=== PATIENT | male | born 1960 | race Caucasian/White ===

== ENCOUNTER → 2017-03-31 | Outpatient (CLI) | payer OTHER | LOC: GMAM 10:28 | PROVIDERS: ATTEND Family Medicine | DX: R97.20 Elevated prostate specific antigen [PSA] (principal); E55.9 Vitamin D deficiency, unspecified ==

== ENCOUNTER → 2017-08-06 | Outpatient (CLI) | payer OTHER | LOC: GMAM 15:02 | PROVIDERS: ATTEND Family Medicine | DX: R97.20 Elevated prostate specific antigen [PSA] (principal) ==

== ENCOUNTER → 2017-12-09 | Outpatient (CLI) | payer OTHER ==
--- NOTE | 2017-12-09 10:22 | US ---
LIMITED ABDOMINAL ULTRASOUND HISTORY:MALIGNANT NEOPLASM OF ASCENDING COLON COMPARISON: Ultrasound of October 27, 2015 TECHNIQUE: Grayscale and color Doppler sonographic evaluations of abdominal visceral organs FINDINGS: Suboptimal image quality. Liver demonstrates diffusely increased echotexture. Several scattered areas of subtle hypoattenuation in liver could represent focal fatty sparing, given lack of clear appearance of mass lesion and without associated vascularity. No abnormal intrahepatic biliary distention. Major portal veins are patent with unremarkable directions of flow. No perihepatic ascites. Gallbladder is unremarkable in appearance with normal wall thickness. No shadowing stones nor pericholecystic fluid is identified. No sonographic Estrada's sign. Common bile duct measures 5.5 mm in diameter. Pancreas is suboptimally visualized. Visualized portions of right kidney demonstrate no shadowing stone, hydronephrosis nor cortical lesion. IMPRESSION: 1. Suboptimal study. Extensive increase in hepatic echotexture consistent with parenchymal disease versus underlying fatty infiltration. Several areas of hypoechoic appearance in liver again identified, possibly reflective of focal fatty sparing. These findings are not convincing for mass lesion and without concerning vascularity. 2. No cholelithiasis nor sonographic suggestion of cholecystitis. 3. No abnormal intrahepatic and extrahepatic biliary distention. Electronically signed by: Burton Salgado MD 12/09/2017 10:21 AM ASSOCIATE PROFESSOR OF MATHEMATICS
== END ==
LOC: US 08:08
PROVIDERS: ATTEND Internal Medicine Hematology & Oncology
DX: C18.2 Malignant neoplasm of ascending colon (principal)

== ENCOUNTER → 2018-03-06 | Outpatient (CLI) | payer OTHER | LOC: GMAM 11:15 | PROVIDERS: ATTEND Family Medicine | DX: R97.20 Elevated prostate specific antigen [PSA] (principal); E55.9 Vitamin D deficiency, unspecified ==

== ENCOUNTER → 2018-03-20 | Outpatient (CLI) | payer OTHER | LOC: GMAM 11:23 | PROVIDERS: ATTEND Family Medicine | DX: C18.9 Malignant neoplasm of colon, unspecified (principal) ==

== ENCOUNTER 2018-06-11 13:22 | Observation (INO) | payer OTHER ==
--- NOTE | 2018-06-11 15:12 | HP ---
SUPERVISING PHYSICIAN: Asa Dominguez M.D. CHIEF COMPLAINT: Vomiting. HISTORY OF PRESENT ILLNESS: This is a 58 year-old male patient who presented to Dr. Mosley's office earlier today with nausea and vomiting. He stated that his symptoms started yesterday while he was watching TV. He continued to have some nausea and vomiting so went to the office this afternoon. He had some labs drawn which were pretty much unremarkable with a mild leukocytosis, however abdominal film indicated he might have an ileus versus small bowel obstruction in very early stages. The patient does have a history of colon cancer. His last dose of chemotherapy was in March and he is actually being evaluated in [facility] for a clinical trial of a new chemotherapy medication that is to be started on Friday, so he is currently not on any chemotherapy. His oncologist is Dr. Chavarria in [place]. At time of examination, the patient is alert and oriented without any distress. He does have a little bit of epigastric discomfort to palpation. PAST MEDICAL HISTORY: 1. Colon cancer. 2. Hyperlipidemia. 3. Vitamin D deficiency. 4. Testosterone deficiency. 5. Hypertriglyceridemia. PAST SURGICAL HISTORY: 1. Colon resection in 2016 which also took 20% of his liver. 2. Hemicolectomy. 3. Left arm fracture repair open reduction and internal fixation. CURRENT MEDICATIONS: 1. Vitamin D 1,000 units p.o. daily. ALLERGIES: NO KNOWN DRUG ALLERGIES. FAMILY HISTORY: Father had lung cancer. Mother who is healthy. Two healthy brothers. Maternal grandfather had colon cancer. SOCIAL HISTORY: The patient drinks alcohol socially. He used to use smokeless tobacco but quit in 2014. No illegal drugs. He is but he does have 2 children. REVIEW OF SYSTEMS: CONSTITUTIONAL: No fever or chills. No recent weight loss or weight gain. HEENT: No headaches, vision changes, ear pain, nasal congestion or throat pain. RESPIRATORY: No cough, hemoptysis or pleuritic chest pain. CARDIOVASCULAR: No chest pain, palpitations or peripheral edema. GASTROINTESTINAL: Positive for nausea and vomiting. No significant abdominal pain. No diarrhea or constipation. GENITOURINARY: No dysuria, frequency or flank pain. ENDOCRINE: No polydipsia, polyuria or polyphagia. No heat or cold intolerance. HEMATOLOGIC: No easy bruising or transfusion reaction. MUSCULOSKELETAL: No back pain, joint pain or joint swelling. NEUROLOGIC: No dizziness, paresthesias or seizures. PHYSICAL EXAMINATION: VITAL SIGNS: Blood pressure 116/79, heart rate 88, respiratory rate 16, temperature 98.8, oxygen saturation 98%. GENERAL: Mr. Carpenter is a 58 year-old male patient who is in no active distress currently. HEENT: Normocephalic and atraumatic. Eyes: Pupils are equal and reactive. Nose: No drainage. Throat: Moist mucosa. NECK: Supple. Midline trachea. No jugular venous distention. CHEST: Symmetrical with equal rise and fall of the chest with inspiration and expiration. Lung sounds are clear to auscultation bilaterally. CARDIOVASCULAR: Regular rate and rhythm. Normal S1 and S2. ABDOMEN: Soft. Positive bowel sounds. Some mild tenderness to palpation in the epigastric area. GENITOURINARY: Exam is deferred. EXTREMITIES: Lower extremities with no edema. NEUROLOGIC: The patient is alert and oriented. Moves all extremities. Extraocular movements are intact. LABORATORY: Labs are reviewed and show WBCs are 11.6, hemoglobin 17.0, hematocrit 49.3, platelet count 325. Chemistry is unremarkable. He had a minimally elevated lipase of 53. I do not have the abdominal film available for review, however reportedly from Dr. Mosley it may show an early ileus versus small bowel obstruction. ASSESSMENT: 1. Nausea with vomiting. 2. Dehydration. 3. Possible small bowel obstruction versus ileus. 4. Colon cancer. PLAN: Will admit the patient for IV fluids as well as control of nausea. Will start on a clear liquid diet and advance as tolerated. Additionally I have ordered some IV Protonix as he may have a degree of gastritis. Will recheck an abdominal film tomorrow to see if there is any improvement versus worsening of the small bowel obstruction versus ileus. Hopefully he will improve and can be discharged so that he can make his appointment on Friday for his clinical trial in [place]. #[id number] [facility]
[2018-06-11] MEDS ORDERED: ONDANSETRON INJ 4 MG/2 ML VIAL IV PRN (15:41)
[2018-06-11] MEDS ORDERED: SODIUM CHLORIDE 0.9% (FLUSH) 10 ML SYG IV PRN (15:41)
[2018-06-11] MEDS: LACTATED RINGERS 1,000 ML IVS PRN (15:52)
[2018-06-11] MEDS ORDERED: IV SET AND CAP CHANGE INJ INJ SCH (16:00)
[2018-06-11] MEDS: PANTOPRAZOLE SODIUM IV 40 MG VIAL IV SCH (16:31)
[2018-06-12] MEDS: LACTATED RINGERS 1,000 ML IVS PRN ×3 (01:25→21:11)
--- NOTE | 2018-06-12 06:21 | RAD ---
EXAM DESCRIPTION: Abdomen Flat Upright CLINICAL HISTORY: 58 years, Male, possible SBO COMPARISON: CT abdomen from July 14, 2015 FINDINGS: Dilated loops of bowel with air-fluid levels concerning for small bowel obstruction. No free air. Electronically signed by: Frankie Bustamante MD 06/12/2018 6:20 AM CDT
[2018-06-12] MEDS ORDERED: SODIUM PHOS/BIPHOS ENEMA ADULT 133 ML BTTL PR ONE (10:39)
--- NOTE | 2018-06-12 10:59 | CONS ---
DATE OF CONSULTATION: 06/12/18 REFERRING: Hospitalist service HISTORY OF PRESENT ILLNESS: The patient is a 58-year-old male who was admitted from Dr. Mosley's office yesterday with nausea and vomiting. He stated it began yesterday morning. 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 X-rays show question of an early small bowel obstruction. His last chemotherapy was in March. He is scheduled to go to [facility] on Friday for a [facility] scan to begin a new protocol on Friday. He states that he has not lost weight, gained weight and that his clothes are fitting. He denies changes in his bowel habits, melena or hematochezia. PAST MEDICAL HISTORY: 1. Hyperlipidemia. 2. Testosterone and vitamin D deficiency. 3. Hypertriglyceridemia. PAST SURGICAL HISTORY: 1. Colon resection. 2. Liver resection. 3. Left arm fracture with open reduction and internal fixation. CURRENT MEDICATIONS: Vitamin D. ALLERGIES: NO KNOWN DRUG ALLERGIES. FAMILY HISTORY: Positive for lung cancer, colon cancer. SOCIAL HISTORY: He drinks moderately. He quit using smokeless tobacco in 2014 at the time of this cancer. He is . REVIEW OF SYSTEMS: There are no fevers or chills, no upper respiratory symptoms. He denies abdominal pain, nausea or vomiting. He denies urinary symptoms. PHYSICAL EXAMINATION: GENERAL: The patient is awake, alert, cooperative, in no acute distress. VITAL SIGNS: The patient is currently afebrile, normotensive. Pulse in the 80s. HEENT: Sclerae nonicteric. Mucous membranes moist. NECK: Without adenopathy. BACK: Without CVA tenderness. CHEST: Equal breath sounds bilaterally. ABDOMEN: Soft, mildly distended and somewhat firm, but there is no tenderness, no discrete mass and no fluid wave. RECTAL: Deferred. EXTREMITIES: Without cyanosis, clubbing or edema. LABORATORY: Potassium 3.9, creatinine 0.68. Lipase elevated at 53 yesterday. It is pending today. White blood cell count is down to 6.1 from 11. Hemoglobin 14.5, platelet count 249,000, neutrophils 65%. X-ray reveals a few air-fluid levels in the small bowel and still has stool within his colon. There is a question of an area of the splenic flexure of the colon with a possible apple core lesion, but this is likely to be just motion. ASSESSMENT: 1. History of colon cancer with hepatic metastasis and known omental metastasis. 2. Probable carcinomatosis with partial versus early small bowel obstruction. RECOMMENDATION: Continue the iv fluids and clear liquids. Increase ambulation. We will give the patient a Fleet's enema. We will repeat x-rays in the morning and proceed from there. #[id number] [facility]
[2018-06-12] MEDS: PANTOPRAZOLE SODIUM IV 40 MG VIAL IV SCH (17:37)
--- NOTE | 2018-06-12 20:51 | PN ---
DATE: 06/12/18 SUPERVISING PHYSICIAN: Asa Dominguez M.D. SUBJECTIVE: The patient is sitting up in his bed. He has tolerated his clear liquids without any problems. We discussed the possibility of a small bowel obstruction and he agreed to present plan of care. He denies any nausea or vomiting or significant abdominal pain. OBJECTIVE: VITAL SIGNS: He is afebrile, heart rate 82, blood pressure 107/69, respiratory rate 16, O2 sat 99% on room air. RESPIRATORY: Essentially clear to auscultation bilaterally. CARDIAC: Regular rate and rhythm. GASTROINTESTINAL: Abdomen is soft, nondistended, non-tender. Bowel sounds are positive. EXTREMITIES: No cyanosis, clubbing or edema. NEUROLOGIC: He is awake,alert and oriented times three. LABORATORY: WBC 6.1, hemoglobin 14.5, hematocrit 43.5. Chemistries are basically within normal limits with his repeat lipase this morning of 22. Abdominal x-ray shows dilated loops of bowel with air/fluid levels concerning for small bowel obstruction with no free air. All other labs and films have been reviewed via the EMR. ASSESSMENT: 1. Abdominal pain with concerns for small bowel obstruction. 2. History of colon cancer with hepatic metastasis. 3. Dehydration that has mostly resolved. PLAN: We will continue present supportive care. I have consulted Dr. Vasques and will defer his abdominal issues to him. His lab was basically within normal limits this morning, so will hold on any lab tomorrow, but will do another abdominal x-ray. He will also get a Fleets enema. Otherwise will continue to monitor him closely and follow as needed. Dr. Dominguez is the collaborating physician available for consultation. #[id number] [facility]
--- NOTE | 2018-06-13 06:57 | RAD ---
EXAM DESCRIPTION: Abdomen Flat Upright CLINICAL HISTORY: 58 years, Male, sbo COMPARISON: June 12, 2018 FINDINGS: Gas-distended loops of bowel with air-fluid levels. Obstruction not excluded. Findings similar to prior study. No other change. Electronically signed by: Frankie Bustamante MD 06/13/2018 6:56 AM CDT
[2018-06-13 10:44] VITALS: BP 109/69; TEMP 98.5; O2SAT 99
--- NOTE | 2018-06-13 16:08 | DS ---
SUPERVISING PHYSICIAN: Asa Dominguez M.D. DISCHARGE DIAGNOSIS: 1. Abdominal pain with concerns for developing small bowel obstruction. 2. History of colon cancer with hepatic metastasis. 3. Dehydration that has resolved. HISTORY OF PRESENT ILLNESS: This is a 58 year-old male patient that presented to his primary care physician's office, Dr. Mosley, on the day of admission with nausea and vomiting. His symptoms started the prior day while he was watching TV. He went to see Dr. Mosley and some labs were drawn. They were fairly unremarkable. He did have mild leukocytosis. He received some fluids in the clinic, however his abdominal film indicated that he may have an ileus versus small bowel obstruction in the very early stages. The patient has a history of colon cancer. His last dose of chemotherapy was in March and he is actually being evaluated at [facility] for clinical trial this coming Friday. His oncologist is Dr. Chavarria in [place]. HOSPITAL COURSE: The patient was placed in Observation. He was initially made NPO and then his diet was advanced to clear liquid. Dr. Vasques was consulted and he agreed with the present plan of care to continue with bowel rest utilizing clear liquids only and to monitor him by his abdominal x-ray. He had no further complaints of nausea, vomiting or diarrhea. Abdomen was soft, nondistended, non-tender. He tolerated his p.o. fluids well, although his x- ray did continue to show a questionable small bowel obstruction. Clinically he improved. His vital signs were stable. His laboratory was unremarkable except for his initial lipase was elevated at 53, but normalized at 22. His morning x- ray for his abdomen shows gas-distended loops of bowel with air-fluid levels. Obstruction is not included. Because he is clinically stable and has tolerated his fluids without any problems, he will be discharged home in stable condition. DISCHARGE PLAN: The patient will be discharged home in stable condition today. He is to continue with a clear liquid diet per Dr. Vasques's recommendation and he may add Ensure. He is to have a CT done on Friday at [facility] to followup for his colon cancer. He is then to followup with his primary care physician, Dr. Mosley, on June 22. He will be discharged on no medications. He is to followup at the hospital or with Dr. Mosley's office for any further problems or complications. DISCHARGE MEDICATIONS: None. #[id number] [facility]
== END 2018-06-13 09:25 | disposition home or self-care (01) ==
LOC: GMAM 13:22 → MS 14:30 → INTOOBSV 14:30
PROVIDERS: ADMIT Nurse Practitioner; ATTEND Nurse Practitioner Acute Care
DX: E86.0 Dehydration (principal); C18.9 Malignant neoplasm of colon, unspecified; C78.7 Secondary malignant neoplasm of liver and intrahepatic bile duct; C78.6 Secondary malignant neoplasm of retroperitoneum and peritoneum; R10.13 Epigastric pain; D72.829 Elevated white blood cell count, unspecified; E78.5 Hyperlipidemia, unspecified; E78.1 Pure hyperglyceridemia; E55.9 Vitamin D deficiency, unspecified; Z92.21 Personal history of antineoplastic chemotherapy; Z79.899 Other long term (current) drug therapy; Z87.891 Personal history of nicotine dependence
CPT/HCPCS: J7120 ×4; 80048; 36415; 82150; 85025; 83690 ×2; 74019 ×2

== ENCOUNTER → 2018-06-25 | Outpatient (CLI) | payer OTHER | LOC: GMAM 10:56 | PROVIDERS: ATTEND Family Medicine | DX: E53.8 Deficiency of other specified B group vitamins (principal); R53.83 Other fatigue; E55.9 Vitamin D deficiency, unspecified ==

== ENCOUNTER 2018-06-28 18:34 | Inpatient (IN) | payer OTHER ==
[2018-06-28] MEDS ORDERED: HYDROcodone 5MG/APAP 325MG 1 EA TAB PO ONE (19:05)
--- NOTE | 2018-06-28 20:16 | RAD ---
EXAM DESCRIPTION: Abdomen Series CLINICAL HISTORY: upper abd pain, active colon cancer COMPARISON: Chest radiograph August 09, 2015 FINDINGS: Frontal view of the chest and supine and upright images of the abdomen were submitted. Cardiac silhouette is within normal limits. Linear calcification at the left apex compatible with calcified pleural plaque. This was visualized in the prior CT October 27, 2015. There is no focal parenchymal disease. There is an infusion catheter with the tip ending at the level of the superior vena cava. Surgical sutures are noted at the right mid abdomen. Air-fluid level at the right upper quadrant could be secondary to a diarrheal state. There is no free air in the abdomen. There is no evidence of bowel obstruction. IMPRESSION: Air-fluid level at the right upper quadrant could be secondary to a diarrheal state. Electronically signed by: Vinod Donald MD 06/28/2018 8:15 PM CDT
[2018-06-28] MEDS ORDERED: MORPHINE SULFATE INJ 10 MG/ML VIAL IV ONE ×2 (20:21→22:19)
--- NOTE | 2018-06-28 21:45 | CT ---
EXAM DESCRIPTION: Abdomen/Pelvis w/Contrast CLINICAL HISTORY: upper abd pain, known colon cancer with carcinomat COMPARISON: July 14, 2015 TECHNIQUE: Contiguous axial images of the abdomen and pelvis were obtained after the administration of intravenous contrast followed by reconstruction images.This exam was performed according to our departmental dose-optimization program, which includes automated exposure control, adjustment of the mA and/or kV according to patient size and/or use of iterative reconstruction technique. FINDINGS: Linear opacities within the lungs may represent scar versus subsegmental atelectasis. Patient is status post partial colon resection. Air-fluid levels within the colon compatible with a diarrheal state. Proximal colonic loops are distended with fluid. Mildly dilated small bowel loops in the midabdomen worrisome for at least a partial small bowel obstruction. Abnormal attenuation within the omentum compatible with known carcinomatosis. There is a 8 millimeter area of decreased echotexture within the right hepatic parenchyma of unknown etiology. There is atherosclerosis. Aorta demonstrates normal caliber and tapering. The spleen, and pancreas are within normal limits. Calcifications within the pelvis noted. IMPRESSION: Dilated mid small bowel loops worrisome for a partial small bowel obstruction . Distended proximal colonic loops with fluid with caliber transition at the level of the sigmoid colon also compatible with at least a partial small bowel obstruction. Abnormal attenuation within the omentum compatible with known carcinomatosis. Electronically signed by: Vinod Donald MD 06/28/2018 9:44 PM CDT
[2018-06-28] MEDS ORDERED: KCL 10 MEQ/D5 1/2NS 1,000 ML IVS ONE (22:03)
[2018-06-28] MEDS ORDERED: TEMAZEPAM 15 MG CAP PO ONE (22:03)
--- NOTE | 2018-06-28 22:07 | ED.PDOC ---
History of Present Illness - General Chief Complaint: Abdominal Pain Stated Complaint: abd pain, colon ca Time Seen by Provider: 06/28/18 18:35 Source: patient Exam Limitations: no limitations - History of Present Illness Initial Comments: the patient is a 58-year-old male presenting to the emergency room secondary to a feeling of upper abdominal fullness and discomfort as well as hardness. The patient has known metastatic colon cancer with carcinomatosis. He is followed at [facility] and is receiving an experimental chemotherapy. He did have a partial small bowel obstruction here approximately 3 weeks ago that remitted essentially on its own with bowel rest and IV fluids. No fevers. No nausea or vomiting. He has had decreased oral intake. He has had increasing pain over the last 3 days. He has had some constipation but has had some stool output. Timing/Duration: other - 3 days Severity: moderate Improving Factors: nothing Worsening Factors: nothing Associated Symptoms: loss of appetite Allergies/Adverse Reactions: Allergies NO KNOWN ALLERGY Allergy (Verified 06/11/18 17:08) Home Medications: Ambulatory Orders Metoclopramide HCl [Reglan] 10 mg PO Q6HR PRN 06/28/18 Review of Systems - Review of Systems Constitutional: States: malaise EENTM: States: no symptoms reported Respiratory: States: no symptoms reported Cardiology: States: no symptoms reported Gastrointestinal/Abdominal: States: abdominal pain, constipation. Denies: diarrhea, vomiting Genitourinary: States: no symptoms reported Musculoskeletal: States: no symptoms reported Skin: States: no symptoms reported Neurological: States: no symptoms reported Endocrine: States: no symptoms reported All other Systems: No Change from Baseline Past Medical History (General) - Patient Medical History Hx Seizures: No Hx Stroke: No Hx Asthma: No Hx of COPD: No Hx Cardiac Disorders: No Hx Congestive Heart Failure: No Hx Pacemaker: No Hx Hypertension: No Hx Thyroid Disease: No Hx Diabetes: No Hx Gastroesophageal Reflux: No Hx Cancer: Yes - colon Hx MRSA: No Surgical History: cancer surgery - Vaccination History Hx Tetanus, Diphtheria Vaccination: No Hx Influenza Vaccination: No Hx Pneumococcal Vaccination: No - Social History Hx Tobacco Use: Yes - snuff Hx Chewing Tobacco Use: Yes Tins Per Day Chewed: 1 Hx Alcohol Use: No Hx Substance Use: No Hx Physical Abuse: No Hx Emotional Abuse: No - Female History Patient is a Female of Child Bearing Age (10 -59 yrs old): No Family Medical History - Family History Mother Family History: Unknown Living Status: Still Living Physical Exam - Physical Exam General Appearance: Alert, Other - uncomfortable Eye Exam: bilateral normal Ears, Nose, Throat: hearing grossly normal, normal ENT inspection, normal pharynx Neck: full range of motion, supple Respiratory: lungs clear, normal breath sounds, no respiratory distress, no accessory muscle use Cardiovascular/Chest: normal peripheral pulses, regular rate, rhythm, no edema Peripheral Pulses: radial,right: 2+, radial,left: 2+, dorsalis pedis,right: 2+, dorsalis pedis,left: 2+ Gastrointestinal/Abdominal: other - upper anterior abdominal wall is fairly hard. No true rebound or peritoneal signs. Rectal Exam: deferred Back Exam: normal inspection, no CVA tenderness, no vertebral tenderness Extremity: normal range of motion, non-tender, normal inspection, no pedal edema , normal capillary refill Neurologic: supervisor blast furnace auxiliaries II-XII nml as tested, no motor/sensory deficits, alert, normal mood/affect, oriented x 3 Skin Exam: normal color Comments: Vital Signs - 24 hr 06/28/18 18:49 Temperature 97.6 F Pulse Rate [ 85 Left Brachial] Respiratory 20 Rate Blood Pressure 150/85 [Left Arm] O2 Sat by Pulse 98 Oximetry Progress - Progress Progress: 06/28/18 22:10 the patient is a 58-year-old male presenting to emergency room secondary to increasing abdominal discomfort and a slight decrease in oral intake over the last 3 days. He does have known colon cancer with carcinomatosis. He has had a partial small bowel obstruction in the past. [facility] the patient is not vomiting and is at least having a little bit of stool output. Given his current state the patient will be put in at least overnight for IV fluid rehydration and some pain control. Further care will be determined by patient' s symptom progress. He does understand that if he starts throwing up he will need an NG tube. Additionally his oncologist may need to be contacted tomorrow to see what other plans they have for him in the near future. If he starts to develop more of a high-grade colonic obstruction then intervention by gastroenterology may at least improve temporarily helpful. Admit for continuation of care. The patient is more relaxed after the pain medications he has received here. Family does understand that his 6 months prognosis is very poor. - Results/Orders Results/Orders: Laboratory Tests 06/28/18 06/28/18 06/28/18 19:04 19:25 19:25 WBC 4.4 L RBC 4.86 Hgb 14.5 Hct 42.8 MCV 88.1 MCH 29.8 MCHC 33.8 RDW 13.9 Plt Count 365 MPV 7.1 L Absolute Neuts (auto) 2.80 Absolute Lymphs (auto) 0.60 L Absolute Monos (auto) 0.90 H Absolute Eos (auto) 0.10 Absolute Basos (auto) 0.00 Neutrophils % 64.0 Lymphocytes % 13.4 L Monocytes % 20.2 H Eosinophils % 1.9 Basophils % 0.5 Sodium 135 Potassium 3.8 Chloride 94 L Carbon Dioxide 31 Anion Gap 13.8 BUN 5 L Creatinine 0.72 BUN/Creatinine Ratio 6.9 L Random Glucose 124 H Serum Osmolality 268.8 L Lactic Acid 1.8 Calcium 9.1 Total Bilirubin 0.9 AST 57 H ALT 100 H Alkaline Phosphatase 88 Serum Total Protein 8.0 Albumin 3.8 Globulin 4.2 H Albumin/Globulin Ratio 0.9 L Amylase [address] scan of abdomen and pelvis without IV contrast shows air-fluid levels within the colon compatible with a diarrheal state. Proximal colonic loops of distended with fluid. Mildly dilated small bowel loops in the mid abdomen worrisome for a partial small bowel obstruction. Omental changes consistent with carcinomatosis. Possible partial large bowel obstruction as well at the level of the sigmoid colon.. Departure - Departure Clinical Impression: Small bowel obstruction Colon cancer Qualifiers: Colon location: unspecified part of colon Qualified Code(s): C18.9 - Malignant neoplasm of colon, unspecified Disposition: Admit Patient Referrals: Basil Mosley MD [Primary Care Provider] - 1-2 Weeks Home Medications: Ambulatory Orders Metoclopramide HCl [Reglan] 10 mg PO Q6HR PRN 06/28/18 Decision To Admit - Decistion To Admit Decision to Admit Reason: Medical Nature Decision to Admit Date: 06/28/18 Decision to Admit Time: 22:15
--- NOTE | 2018-06-28 22:22 | HP ---
SUPERVISING PHYSICIAN: Steven Luo MD CHIEF COMPLAINT: Abdominal pain. HISTORY OF PRESENT ILLNESS: Mr. Carpenter is a 58 year-old male patient who presented to the Emergency Room today complaining of abdominal fullness and discomfort as well as hardness. 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 He is currently in an experimental chemotherapy trial under the guidance of [facility]. He had a previous partial small bowel obstruction in the last 3 weeks and was admitted here and treated conservatively with good results, bowel rest and IV fluids On this visit, he denies any fever, nausea or vomiting but notes he has had decreased oral intake. He has increasing pain over the last 3 days. He notes his last bowel movement was yesterday. He tried Miralax as well as milk of magnesia which seemed to make the pain worse. Laboratory on admission showed a white count of 4,400 with a normal differential. Chemistries showed normal electrolytes with creatinine of 0.72, lactic acid 1.8, liver functions showed an elevated AST of 57 and ALT of 100. Urinalysis was pending. RADIOLOGY: Initially an abdominal x-ray in the Emergency Department per radiology interpretation showed air-fluid levels in the right upper quadrant which could be secondary to diarrheal state, this was part of abdominal pelvic CT with contrast and there was note of dilated mild small loops worrisome for partial small bowel obstruction and the stated proximal colonic with caliber transition at the level of the sigmoid colon compatible with at least a partial small bowel obstruction. Also note again was abnormal findings of omentum compatible with known carcinomatosis. In the Emergency Room he was treated with morphine and had good relief of his pain. Dr. Mosley, Emergency Room physician, requested the patient be admitted for partial small bowel obstruction for conservative medical treatment with the patient in stable condition and without any active vomiting. He was admitted in stable condition. Also, the patient reports that he is repeating his first round of chemotherapy at [facility] and within the last week had another biopsy of his abdomen. PAST MEDICAL HISTORY: 1. Colon cancer. 2. Hyperlipidemia. 3. Vitamin D deficiency. 4. Testosterone deficiency. 5. Hypertriglyceridemia. PAST SURGICAL HISTORY: 1. Colon resection in 2016 with removal of 20 to 25% of his liver. 2. Hemicolectomy. 3. Left arm fracture repair open reduction and internal fixation. CURRENT MEDICATIONS: 1. Artificial tears to both eyes. 2. Reglan 10 mg every 6 hours p.r.n. 3. Vitamin B12, 1,000 mcg daily. 4. Vitamin D one tablet daily. ALLERGIES: NO KNOWN DRUG ALLERGIES. FAMILY HISTORY: Significant for lung cancer in his father. Maternal grandfather had colon cancer. Mother is healthy. SOCIAL HISTORY: The patient notes he works for [employer] in [place]. He is but he does have 2 children. He lives in [place] and has used smokeless tobacco but quit in 2014. He notes he drinks alcohol on social occasions. He does not use illicit drugs. REVIEW OF SYSTEMS: CONSTITUTIONAL: No fever or chills. No significant weight loss or weight gain. HEENT: No headaches, vision changes, ear pain, nasal congestion or throat pain. RESPIRATORY: No cough, hemoptysis or pleuritic chest pain. No wheezing or shortness of breath. CARDIOVASCULAR: No chest pain, palpitations or peripheral edema or syncopal episodes. GASTROINTESTINAL: Positive for nausea and abdominal pain with constipation as noted in history of present illness. GENITOURINARY: No dysuria, hematuria or flank pain, increased frequency or other urinary symptoms. ENDOCRINE: No polydipsia, polyuria or polyphagia. HEMATOLOGIC: No noted easy bruising and no reported transfusion reaction. MUSCULOSKELETAL: Denies back pain, joint pain or joint swelling. NEUROLOGIC: Denies dizziness, paresthesias or seizures, ataxia or neuromotor deficits. PHYSICAL EXAMINATION: VITAL SIGNS: Temperature 98.1, pulse 85, blood pressure 131/84, respirations 20, saturation 90% on room air. Admission weight 100.7 kg. GENERAL: On admission to the medical/surgical floor the patient is resting comfortably and appears to be in no acute distress. He is sleepy but easily arousable. He is alert and very pleasant. His daughter is at the bedside.. HEENT: Tympanic membranes clear. Bilateral oropharynx is pink. Mucous membranes are noted to be but no lesions. NECK: Supple. Full range of motion, non-tender with no jugular venous distention. CHEST: Lungs are clear to auscultation without any rhonchi, rales, or wheezes. CARDIOVASCULAR: Regular rate and rhythm without appreciable murmurs, rubs, or gallops. ABDOMEN: Notably hard in the upper quadrants. No rebound or peritoneal signs. Bowel sounds are present with some tenderness on palpation. EXTREMITIES: No cyanosis, clubbing, or edema. NEUROLOGIC: Cranial nerves II through XII are grossly intact. No motor or sensory deficits. He was alert and oriented x3. Facial features were symmetrical. Extraocular movements were within normal limits. No notable nystagmus. INTEGUMENTARY: Skin pink, warm and dry. No lesions or rashes. ASSESSMENT: 1. Acute abdominal pain secondary to carcinomatosis with partial versus early small bowel obstruction. 2. History of colon cancer with hepatic metastases and omental metastases. 3. Moderate dehydration secondary to #1. PLAN: The patient is going to be admitted to the medical/surgical floor for treatment of a probable partial small bowel obstruction with conservative medical treatment. This will include IV medication for pain including morphine or Dilaudid as needed along with IV fluids which will be half-normal D5 and half -normal saline with 20 of potassium at 150 mLs per hour. He will have antiemetics to include Zofran, Phenergan and Reglan as needed. He will be n.p.o. tonight and will reevaluate in the morning with repeat abdominal series with anticipation of hopefully being able to transition to clear liquids and initial attempts with Fleet enemas and advance with other laxatives as possible. Will need to touch base with Dr. Do, his oncologist, in regards to his current hospitalization as he is in an experimental trial at [facility]. I believe he is due a dose of chemotherapy on July 07. Certainly, if he does not progress with conservative measures we will more likely need to discuss further treatment plans, possibly transferring for a higher level of care given his advanced cancer and current management under Oncology. He will be started on DVT prophylaxis as per protocol. Will anticipate his length of stay to be at least 2 or 3 days and until he is able to show clinical improvement and transition to outpatient management, we will continue to monitor and treat appropriately. Once able to discharged, he will need close clinical followup both with Dr. Mosley, his primary care physician and Dr. Do, as well as [facility]. #[id number] [facility]
[2018-06-28] MEDS ORDERED: ONDANSETRON INJ 4 MG/2 ML VIAL IV PRN (22:53)
[2018-06-28] MEDS ORDERED: METOCLOPRAMIDE HCL INJ 10 MG/2 ML VIAL IV PRN (23:00)
[2018-06-28] MEDS ORDERED: IV SET AND CAP CHANGE INJ INJ SCH (23:00)
[2018-06-28] MEDS ORDERED: KCL 20MEQ/D5NS 1,000 ML IVS ONE (23:16)
[2018-06-28] MEDS: KCL 20MEQ/D5NS 1,000 ML IVS PRN (23:21)
[2018-06-29] MEDS: MORPHINE SULFATE INJ 10 MG/ML VIAL IV PRN ×5 (01:39→22:22)
[2018-06-29] MEDS ORDERED: KCL 20MEQ/D5NS 1,000 ML IVS ONE (06:09)
[2018-06-29] MEDS: PANTOPRAZOLE SODIUM IV 40 MG VIAL IV SCH (06:13)
[2018-06-29] MEDS: KCL 20MEQ/D5NS 1,000 ML IVS PRN (06:14)
--- NOTE | 2018-06-29 07:01 | RAD ---
EXAM DESCRIPTION: Abdomen Flat Upright CLINICAL HISTORY: 58 years, Male, possible partial SBO COMPARISON: CT abdomen from June 28, 2018 FINDINGS: Dilated loops of bowel in the upper mid abdomen with fluid levels suggestive of bowel obstruction as seen in prior CT. No abnormal calcifications. No acute osseous abnormality. Electronically signed by: Frankie Bustamante MD 06/29/2018 6:59 AM CDT
[2018-06-29] MEDS: SODIUM CHLORIDE 0.9% (FLUSH) 10 ML SYG IV PRN ×3 (07:34→18:03)
[2018-06-29] MEDS ORDERED: KCL 40MEQ/NS 1,000 ML IVS PRN (07:41)
[2018-06-29] MEDS: ENOXAPARIN SODIUM 40 MG/0.4 ML SYG SUBCU SCH (08:53)
--- NOTE | 2018-06-29 11:34 | PN ---
SUPERVISING PHYSICIAN: Asa Dominguez MD DATE: 06/29/18 SUBJECTIVE: The patient is lying in bed asleep. He awakens easily. He complains of epigastric pain that is unchanged since admission. He has had one bout of nausea, but he felt that it was due to coughing and not due to abdominal discomfort. He realizes he may need an NG tube if he continues to have nausea. Otherwise, no complaints of chest pain, shortness of breath, diarrhea or constipation although he has only had one small bowel movement in the last 2 to 3 days in spite of taking Milk of Magnesia, mag citrate and an enema. OBJECTIVE: VITAL SIGNS: Afebrile. Heart rate 100. Blood pressure 127/70. Respiratory rate 18. O2 saturation 95% on room air. RESPIRATORY: Essentially clear to auscultation bilaterally. CARDIAC: Regular rate and rhythm, but at times he is mildly tachycardic. GASTROINTESTINAL: Abdomen is soft, nondistended. He is mildly tender to the epigastric region. There is no rebound tenderness or guarding. His bowel sounds are very hypoactive. EXTREMITIES: No cyanosis, clubbing or edema. NEUROLOGIC: Awake, alert and oriented times three. LABORATORY: WBCs 4000, hemoglobin 13.3, hematocrit 39. There is no left shift on differential. Sodium 138, potassium slightly low at 3.3, chloride 97, carbon dioxide 32, creatinine 0.81, BUN 6, glucose 171, calcium slightly low at 8.3, magnesium 2.3. AST 53, ALT 91 slightly improved from yesterday. Abdominal x-ray shows dilated loops of bowel in the upper midabdomen with fluid level suggestive of a bowel obstruction as seen in prior CT, no abnormal calcifications, no acute osseous abnormality. All other labs and films have been reviewed via the EMR. ASSESSMENT: 1. Acute abdominal pain secondary to carcinomatosis with partial versus early small bowel obstruction. 2. History of colon cancer with hepatic metastases and omental metastases. 3. Moderate dehydration secondary to #1. PLAN: We will continue present supportive care. I have consulted Dr. Vasques and will take his recommendations on the care on Mr. Carpenter. I have changed his IV fluids to include some dextrose as he is NPO at this time. He may need an NG tube if he continues to have emesis. I have ordered routine lab and an abdominal x-ray in the morning. We may also need to followup with his regulator pin inserter, Dr. Chavarria, but will defer to Dr. Vasques and Dr. Chavarria at this time for his treatment plan. Otherwise, we will continue to monitor the patient closely and follow as needed. Dr. Dominguez is the collaborating physician and available for consultation. #[id number] [facility]
[2018-06-29] MEDS: KCL 20MEQ/D5 1/2NS 1,000 ML IVS PRN ×2 (11:43→20:54)
[2018-06-29] MEDS ORDERED: SODIUM PHOS/BIPHOS ENEMA ADULT 133 ML BTTL PR ONE (13:48)
[2018-06-30] MEDS: MORPHINE SULFATE INJ 10 MG/ML VIAL IV PRN ×6 (01:48→20:39)
[2018-06-30] MEDS: KCL 20MEQ/D5 1/2NS 1,000 ML IVS PRN (03:22)
[2018-06-30] MEDS: PANTOPRAZOLE SODIUM IV 40 MG VIAL IV SCH (06:24)
--- NOTE | 2018-06-30 08:23 | RAD ---
EXAM DESCRIPTION: Abdomen Flat Upright two x-ray views CLINICAL HISTORY: 58 years Male, sbo COMPARISON: None. FINDINGS: Upright and supine x-ray views of the abdomen. On the upright view, multiple air fluid levels are seen. These appear similar to previous study. Patient had a CT June 28, 2018 which reported dilated bowel loops worrisome for small bowel obstruction. No free air under the diaphragm. The upright film includes the lower chest and upper abdomen. The supine film includes the mid abdomen and pelvis. Bowel anastomotic staple line noted in the right mid abdomen. IMPRESSION: Stable appearance of the abdomen. See above. Electronically signed by: Kong Cuellar MD 06/30/2018 8:07 AM CDT
[2018-06-30] MEDS: ENOXAPARIN SODIUM 40 MG/0.4 ML SYG SUBCU SCH (09:03)
[2018-06-30] MEDS ORDERED: MAGNESIUM HYDROXIDE 30 ML UD PO ONE (09:10)
--- NOTE | 2018-06-30 10:20 | PN ---
SUPERVISING PHYSICIAN: Asa Dominguez MD DATE: 06/30/18 SUBJECTIVE: The patient is sitting up in his hospital bed. He is drinking coffee. He has required 3 doses of morphine overnight, but he does feel much better. He actually feels like he could have a bowel movement. He has no complaints of nausea or vomiting, chest pain or shortness of breath. He spoke with Dr. Vasques earlier today. OBJECTIVE: VITAL SIGNS: Afebrile. Heart rate 70. Blood pressure 143/91. Respiratory rate 16. O2 saturation 94% on room air. RESPIRATORY: Essentially clear to auscultation bilaterally. CARDIAC: Regular rate and rhythm. GASTROINTESTINAL: Abdomen is soft, nondistended. He is very mildly tender in the epigastric area, but no rebound tenderness or guarding. His bowel sounds are still slightly hypoactive. EXTREMITIES: No cyanosis, clubbing or edema. NEUROLOGIC: Awake, alert and oriented times three. LABORATORY: WBCs 3.2, hemoglobin 12.5, hematocrit 36.8. His electrolytes are basically within normal limits with the exception of calcium slightly low at 8.1. AST 41, ALT 76. Abdominal x-ray appears to be similar to previous study. There is no free air into the diaphragm, continues to be worrisome for a small bowel obstruction. All other labs and films have been reviewed via the EMR. ASSESSMENT: 1. Acute abdominal pain secondary to carcinomatosis with partial versus early small bowel obstruction. 2. History of colon cancer with hepatic metastases and omental metastases. 3. Moderate dehydration secondary to #1. PLAN: We will continue present supportive care. Dr. Vasques, general surgeon, spoke with his oncologist, Dr. Chavarria, yesterday and we are to continue present plan of care. He has advanced his diet to clear liquids this morning as well as given him some Milk of Magnesia. I have decreased his IV fluids and we will discontinue those as the patient tolerates his oral fluids. He did require morphine times 3 overnight and at some point we will need to discuss with Dr. Molsey or Dr. Vasques oral pain medications he will go home on. I will hold on any lab for tomorrow and defer that to Dr. Vasques at this time. We will continue to monitor the patient closely and follow as needed. Dr. Dominguez is the collaborating physician and available for consultation. [facility][id number] [facility]
[2018-06-30] MEDS: SODIUM CHLORIDE 0.9% (FLUSH) 10 ML SYG IV SCH (20:40)
[2018-06-30] MEDS: POLYVINYL ALCOHOL 1.4% OPHTH SOL 1 DROP BOTH_EYES SCH (20:40)
[2018-07-01] MEDS: SODIUM CHLORIDE 0.9% (FLUSH) 10 ML SYG IV PRN ×2 (00:58→09:34)
[2018-07-01] MEDS: MORPHINE SULFATE INJ 10 MG/ML VIAL IV PRN ×3 (00:58→09:33)
[2018-07-01] MEDS: PANTOPRAZOLE SODIUM IV 40 MG VIAL IV SCH (06:05)
--- NOTE | 2018-07-01 07:21 | RAD ---
CLINICAL HISTORY:sbo. :1960. Sex:Male. TECHNIQUE: Supine and upright views of the abdomen. COMPARISON: 06/30/2018 There is mild worsening dilatation of the small bowel with air-fluid levels.. There is no mass. There is no free air. There is no opaque calculus. Skeletal structures are unremarkable. The visible lung bases are clear IMPRESSION: Small bowel obstruction with mild worsening dilatation of the small bowel Electronically signed by: Aguilar Benitez MD 07/01/2018 7:19 AM CDT Workstation: [id number]
[2018-07-01] MEDS: POLYVINYL ALCOHOL 1.4% OPHTH SOL 1 DROP BOTH_EYES SCH (08:31)
[2018-07-01] MEDS: ENOXAPARIN SODIUM 40 MG/0.4 ML SYG SUBCU SCH (08:31)
[2018-07-01] MEDS: SODIUM CHLORIDE 0.9% (FLUSH) 10 ML SYG IV SCH (08:32)
[2018-07-01] MEDS ORDERED: HYDROcodone 10MG/APAP 325MG 1 EA TAB PO PRN (10:43)
[2018-07-01 12:38] VITALS: BP 121/72; TEMP 97.4; O2SAT 97
--- NOTE | 2018-07-09 21:41 | DS ---
SUPERVISING PHYSICIAN: Asa Dominguez M.D. ADMISSION DIAGNOSIS: 1. Acute abdominal pain secondary to carcinomatosis with partial versus early small bowel obstruction. 2. History of colon cancer with hepatic metastasis and omental metastasis. 3. Moderate dehydration secondary to #1. DISCHARGE DIAGNOSIS: 1. Partial versus small bowel obstruction secondary to carcinomatosis resulting in abdominal pains but resolving prior to discharge with the patient having good oral intake on clear liquids and having bowel movements. 2. Moderate dehydration secondary to #1, resolved. 3. History of colon cancer with hepatic metastases and omental metastases followed by oncology at [facility]. REASON FOR ADMISSION: Mr. Carpenter is a 58 year-old male patient that presented to the Emergency Room on 06/28/18 complaining of abdominal pain, fullness and discomfort as well as some hardness. 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 He is currently on experimental chemotherapy trial under the guidance of [facility]. He had a previous partial small bowel obstruction in the last 3 weeks and was admitted here and treated conservatively with good results, bowel rest and IV fluids On this admission, he denied any fever, nausea or vomiting but noted he has had decreased oral intake and had been increasing in pain over the last 3 days. He noted that he had his last bowel movement on the day before admission. He tried MiraLAX as well as milk of magnesia which seemed to make the pain worse. LABORATORY: Admission labs showed he had a white count of 4,400 with a normal differential. Chemistry showed normal electrolytes with creatinine 0.7, lactic acid 1.8. Liver functions showed an elevation of his AST at 57, ALT 100. Urinalysis on admission showed just a small amount of bilirubin and was otherwise within normal limits. RADIOLOGY: He had an abdominal and pelvic CT which per radiology interpretation showed air-fluid levels in the right upper quadrant that could be representing secondary to diarrheal state that was part of the abdominal CT with contrast. There was note of dilated mid small loops worrisome for partial bowel obstruction and distended proximal colonic loops with calibration transition at level of sigmoid colon compatible with at least a partial small bowel obstruction. Also of note again was abnormal findings of omentum compatible with known carcinomatosis. In the Emergency Room he was given pain relief with morphine and at that time then was admitted for conservative medical treatment at which time he had no active vomiting. He was admitted in stable condition. HOSPITAL COURSE: Mr. Carpenter was admitted on 06/28/18 for concerns for partial small bowel obstruction as noted above in Reason for Hospitalization. He was having nausea but was having no emesis and never required placement of an NG tube. He was kept on bowel rest the first 24 hours and then advanced to a clear liquid diet. He was given Milk of Magnesia after an enema and had good results. He was no longer having any significant abdominal pain other than just some mild discomfort that was controllable with oral medications. It was felt that he had clinically stabilized enough to discharge to followup with Vlad Harden in the following week as scheduled, therefore he was discharged. PLAN: Mr. Carpenter was to be discharged on 07/01/18 with instructions to followup with Vlad Harden in the following week as scheduled as well as Dr. Mosley. He was to resume his home medications as instructed. He was told to try Milk of Magnesia daily to help prevent recurrence of small bowel obstruction. He was told to keep to a strict clear liquid diet and add clear protein drinks to help maintain nutritional status. He was told to return to the hospital or call his oncologist or Dr. Mosley should any symptoms reoccur or he have other symptoms concerning. Diet at discharge was strict clear liquid diet with clear protein supplements. Activity is increase as tolerated. DISPOSITION: The patient was discharged to the care of his family to home. Medications at discharge included: 1. [place] 10/325 one half to 2 tablets every 4 hours as needed, written by Dr. Vasques. 2. Ambien 5 mg at bedtime as needed, #30. Condition at discharge was stable and improved. #[id number] [facility]
== END 2018-07-01 13:15 | disposition home or self-care (01) | DRG 389 ==
LOC: ER 18:34 → MS 22:21 → OBSVTOIN 22:21
PROVIDERS: ADMIT Nurse Practitioner Family; ATTEND Nurse Practitioner Family
DX: K56.600 Partial intestinal obstruction, unspecified as to cause (principal); C18.9 Malignant neoplasm of colon, unspecified; C78.6 Secondary malignant neoplasm of retroperitoneum and peritoneum; C78.7 Secondary malignant neoplasm of liver and intrahepatic bile duct; E78.5 Hyperlipidemia, unspecified; E55.9 Vitamin D deficiency, unspecified; E78.1 Pure hyperglyceridemia; E86.0 Dehydration

== ENCOUNTER → 2019-03-18 | Outpatient (CLI) | payer OTHER | LOC: GMAM 16:46 | PROVIDERS: ATTEND Family Medicine | DX: E86.0 Dehydration (principal) ==

== ENCOUNTER → 2019-03-23 | Outpatient (CLI) | payer OTHER | LOC: GMAM 08:23 | PROVIDERS: ATTEND Family Medicine | DX: D49.0 Neoplasm of unspecified behavior of digestive system (principal); E53.8 Deficiency of other specified B group vitamins; E29.8 Other testicular dysfunction; E55.9 Vitamin D deficiency, unspecified ==

== ENCOUNTER → 2019-03-24 | Outpatient (CLI) | payer OTHER | LOC: GMAM 17:10 | PROVIDERS: ATTEND Family Medicine | DX: E87.1 Hypo-osmolality and hyponatremia (principal) ==

== ENCOUNTER 2019-04-01 18:07 | Inpatient (IN) | payer OTHER ==
--- NOTE | 2019-04-01 18:10 | ED.PDOC ---
History of Present Illness - General Chief Complaint: Abdominal Pain Stated Complaint: abdominal pain Time Seen by Provider: 04/01/19 18:10 Source: patient, family Exam Limitations: no limitations - History of Present Illness Initial Comments: Gordon Carpenter 58 y/o male with history of metastatic colon cancer to liver came to ER with sudden onset of right sided abdominal pain around 2-3 hours on arrival home coming from his check up at his oncologist at [facility].Daughter stated chemotherapy was put on hold since he had been having N/V on and off was treated outpatient with IV fluids.He was initially diagnosed in 2014 with colon CA metastasis to liver initially seen by oncologist in [place] then was subsequently referred to [facility] in April 2018.He had also recent Ct ABD-p w/ contrast progression of liver metastasis,splenic metastasis,peritoneal carcinomatosis,small bowel loops dilated with partial SBO.Also was diagnosed with possible Addisons disease taking cortisone. Timing/Duration: 1-3 hours Severity: severe Improving Factors: nothing Worsening Factors: nothing Associated Symptoms: other - see hpi Allergies/Adverse Reactions: Allergies NO KNOWN ALLERGY Allergy (Verified 06/11/18 17:08) Home Medications: Ambulatory Orders Cholecalciferol [Vitamin D] 1 tablet PO DAILY 06/28/18 Cyanocobalamin [Vitamin B-12] 1,000 mcg PO DAILY 06/28/18 Metoclopramide HCl [Reglan] 10 mg PO Q6HR PRN 06/28/18 Polyvinyl Alcohol [Artificial Tears] 2 drop BOTH_EYES BID 06/28/18 HYDROcodone 10MG/APAP 325MG [Alfred 10/325] 0.5 - 2 ea PO Q4H PRN #30 tab 07/01/18 Zolpidem Tartrate [Ambien] 5 mg PO BEDTIME PRN #30 tab 07/01/18 Review of Systems - Review of Systems Constitutional: States: no symptoms reported Respiratory: States: no symptoms reported Cardiology: States: no symptoms reported Gastrointestinal/Abdominal: States: see HPI Genitourinary: States: no symptoms reported Musculoskeletal: States: no symptoms reported Skin: States: no symptoms reported Neurological: States: no symptoms reported Endocrine: States: see HPI All other Systems: Reviewed and Negative, No Change from Baseline Past Medical History (General) - Patient Medical History Hx Seizures: No Hx Stroke: No Hx Asthma: No Hx of COPD: No Hx Cardiac Disorders: No Hx Congestive Heart Failure: No Hx Pacemaker: No Hx Hypertension: No Hx Thyroid Disease: No Hx Diabetes: No Hx Gastroesophageal Reflux: No Hx Cancer: Yes - colon Hx MRSA: No Surgical History: other - liver resection;colon resection - Vaccination History Hx Tetanus, Diphtheria Vaccination: No Hx Influenza Vaccination: No Hx Pneumococcal Vaccination: No - Social History Hx Tobacco Use: Yes - snuff Hx Chewing Tobacco Use: Yes Hx Alcohol Use: No Hx Substance Use: No Hx Physical Abuse: No Hx Emotional Abuse: No Family Medical History - Family History Mother Family History: No Known Living Status: Still Living Hx Family Cancer: Yes - dad-lung;grandpa-colon Father Living Status: Still Living Hx Family Cancer: Yes - lung cancer Physical Exam - Physical Exam General Appearance: Other - in pain Eye Exam: bilateral normal - no jaundice Ears, Nose, Throat: hearing grossly normal, normal ENT inspection, normal pharynx Neck: non-tender, supple, normal inspection Respiratory: chest non-tender, lungs clear, normal breath sounds, no respiratory distress Cardiovascular/Chest: normal peripheral pulses, regular rate, rhythm, no murmur Peripheral Pulses: radial,right: 2+, radial,left: 2+ Gastrointestinal/Abdominal: tenderness - right side abdomen,no distention, hepatomegaly - liver nodules felt Back Exam: no CVA tenderness, no vertebral tenderness Extremity: no pedal edema, no calf tenderness Neurologic: alert, oriented x 3 Skin Exam: normal color, warm/dry Progress - Progress Progress: 04/01/19 20:03 Vital Signs - 8 hr 04/01/19 04/01/19 18:08 19:00 Temperature 96.4 F L 96.4 F L Pulse Rate [ 70 70 left brachial] Respiratory 14 16 Rate Blood Pressure 114/68 120/75 [left brachial] O2 Sat by Pulse 99 99 Oximetry - Results/Orders Results/Orders: Vital Signs - 8 hr 04/01/19 04/01/19 18:08 19:00 Temperature 96.4 F L 96.4 F L Pulse Rate [ 70 70 left brachial] Respiratory 14 16 Rate Blood Pressure 114/68 120/75 [left brachial] O2 Sat by Pulse 99 99 Oximetry Laboratory Tests 04/01/19 18:24 WBC 6.6 RBC 4.57 L Hgb 13.5 L Hct 39.3 L MCV 85.9 MCH 29.4 MCHC 34.3 RDW 16.2 H Plt Count 520 H MPV 7.4 Absolute Neuts (auto) 3.90 Absolute Lymphs (auto) 1.50 Absolute Monos (auto) 1.00 H Absolute Eos (auto) 0.00 Absolute Basos (auto) 0.10 Neutrophils % 59.0 Lymphocytes % 23.2 Monocytes % 15.4 H Eosinophils % 0.7 L Basophils % 1.7 PT 9.7 INR 0.97 PTT (SP) 26.1 Sodium 133 L Potassium 2.7 L Chloride 94 L Carbon Dioxide 25 Anion Gap 16.7 BUN 11 Creatinine 0.77 BUN/Creatinine Ratio 14.3 Random Glucose 102 Serum Osmolality 266.0 L Uric Acid 5.1 Calcium 9.0 Magnesium 1.9 Total Bilirubin 0.6 Direct Bilirubin 0.2 Indirect Bilirubin 0.4 AST 54 H ALT 86 H Alkaline Phosphatase 158 H Creatine Kinase 56 CK-MB (CK-2) 2.1 CK-MB (CK-2) % Not Reportable Troponin I < 0.02 Serum Total Protein 7.5 Albumin 3.3 Discuss hospital OBS with patient and family;Also discuss case with surgeon and Alex Maya -Hospitalist for admit Departure - Departure Clinical Impression: Colon carcinoma metastatic to liver, Electrolyte imbalance, SBO (small bowel obstruction), Addisons disease Abdominal pain Qualifiers: Abdominal location: upper abdomen, unspecified Qualified Code(s): R10.10 - Upper abdominal pain, unspecified Time of Disposition: 20:24 Disposition: Admit Patient Condition: Fair Departure Forms: Patient Portal Self Enrollment Referrals: Basil Mosley MD [Primary Care Provider] - 1-2 Weeks Home Medications: Ambulatory Orders Cholecalciferol [Vitamin D] 1 tablet PO DAILY 06/28/18 Cyanocobalamin [Vitamin B-12] 1,000 mcg PO DAILY 06/28/18 Metoclopramide HCl [Reglan] 10 mg PO Q6HR PRN 06/28/18 Polyvinyl Alcohol [Artificial Tears] 2 drop BOTH_EYES BID 06/28/18 HYDROcodone 10MG/APAP 325MG [Alfred 10/325] 0.5 - 2 ea PO Q4H PRN #30 tab 07/01/18 Zolpidem Tartrate [Ambien] 5 mg PO BEDTIME PRN #30 tab 07/01/18 Decision To Admit - Decistion To Admit Decision to Admit Reason: Admit from ER Decision to Admit Date: 04/01/19 - D/W Dr. Vasques-surgeon; Decision to Admit Time: 20:22 - D/W Alex Maya -Hospitalist /ANP
[2019-04-01] MEDS ORDERED: HYDROmorphone HCL INJ 2 MG/ML VIAL IV ONE ×2 (18:11→18:41)
[2019-04-01] MEDS ORDERED: PROCHLORPERAZINE INJ 10 MG/2 ML VIAL IV ONE (18:12)
[2019-04-01] MEDS ORDERED: HYDROmorphone PCA 0.2 MG/ML 1 BAG BAG IVPB ONE (19:06)
[2019-04-01] MEDS ORDERED: SODIUM CHLORIDE 0.9% 1000ML 1,000 ML ONE (19:13)
[2019-04-01] MEDS ORDERED: NALOXONE HCL INJ 0.4 MG/ML VIAL IV PRN (19:16)
[2019-04-01] MEDS ORDERED: HYDROmorphone PCA 0.2 MG/ML 1 BAG BAG IVPB SCH (19:30)
[2019-04-01] MEDS ORDERED: SODIUM CHLORIDE 0.9% 1000ML 1,000 ML IVS PRN (19:30)
[2019-04-01] MEDS ORDERED: KCL 40MEQ/NS 1,000 ML IVS PRN (19:39)
[2019-04-01] MEDS ORDERED: HYDROCORTISONE SOD SUCC INJ 100 MG/2 ML VIAL IV ONE (19:55)
[2019-04-01] MEDS ORDERED: SODIUM CHLORIDE 0.9% 50ML 50 ML ONE (20:34)
[2019-04-01] MEDS ORDERED: raNITIdine HCL INJ 25 MG/ML VIAL ONE (20:34)
[2019-04-01] MEDS: raNITIdine HCL INJ 50 MG in SODIUM CHLORIDE 0.9% 50ML 50 ML IVPB ONE ×2 (20:40→20:53)
--- NOTE | 2019-04-01 20:46 | RAD ---
EXAM DESCRIPTION: XR Chest,1 View CLINICAL HISTORY: 58 years Male cough TECHNIQUE: One view of the chest. COMPARISON: Comparison is made to the prior examination dated 08/09/2015. FINDINGS: Again seen is a right chest wall permacath with its tip projecting over the superior vena cava. The lungs are clear without focal consolidation, effusion, or pneumothorax. The cardiomediastinal silhouette and central pulmonary vasculature are normal. No acute osseous abnormalities. IMPRESSION: No acute cardiopulmonary abnormalities. Electronically signed by: Joyce Dias MD 04/01/2019 8:44 PM CDT
--- NOTE | 2019-04-01 21:26 | HP ---
SUPERVISING PHYSICIAN: Asa Dominguez MD CHIEF COMPLAINT: Abdominal pain. HISTORY OF PRESENT ILLNESS: Mr. Carpenter is a 58-year-old male patient who has a history of metastatic colon cancer to the liver. Today, he presented to the Emergency Room with sudden onset of right sided abdominal pain about 2 to 3 hours before his arrival from home from his checkup at his oncologist at [facility] today. His daughter stated that chemotherapy had been put hold since he had been having a significant amount of nausea and vomiting on and off. He has had treatments as an outpatient with IV fluids. He was initially diagnosed with colon cancer with metastasis to the liver in 2014 and was initially followed by his oncologist, Dr. Chavarria, in [place] and then referred to [facility] in April of 2018. He had had a CT of the abdomen with contrast that showed liver metastasis, splenic metastasis and peritoneal carcinomatosis and small bowel loops compatible with partial small bowel obstruction. He has also had a questionable diagnosis of Brandon disease and has been taking cortisone. In the Emergency Room, laboratory studies showed he had a white count of 6,600 without a left shift on differential. His hemoglobin and hematocrit were within normal limits at 13.5 and 39.3 respectively. Coagulation studies were within normal limits. Chemistries showed he was mildly hyponatremic with sodium 133, potassium 2.7, BUN 11, creatinine 0.77. Liver functions showed elevated amylase, AST, ALT and alkaline phosphatase. Troponin less than 0.02. TSH was greater than 49.6. He was given Dilaudid in the Emergency Room for pain control. He was started on a TECHNICAL PUBLICATIONS WRITER pump in the Emergency Room. His pain was very difficult to control, therefore, he was started on a TECHNICAL PUBLICATIONS WRITER pump. He was given 100 mg of hydrocortisone, Dilaudid and Compazine for nausea. He was in stable condition with vital signs showing he was afebrile with temperature 97.4, pulse 94, blood pressure 107/65, respirations 18, saturation 99% on room air. Given that he has a questionable small bowel obstruction, he is going to be admitted for further treatment and evaluation. He was in stable condition at time of admission. PAST MEDICAL HISTORY: 1. Colon cancer with metastasis to the liver. 2. Hyperlipidemia. 3. Vitamin D deficiency. 4. Testosterone deficiency. 5. Hypertriglyceridemia. PAST SURGICAL HISTORY: 1. Colon resection in 2016 with removal of 20% to 25% of his liver and ascending colectomy. 2. Left arm fracture repair with open reduction and internal fixation. MEDICATIONS: 1. Hydrocortisone 10 mg b.i.d. 2. Senokot 2 tablets b.i.d. 3. Potassium chloride 10 mEq daily. 4. Vitamin D 50,000 units weekly. 5. Vitamin B12 1 mL subcuticularly weekly, 1000 mcg per mL. 6. [place] 10/325 1 q.4h. as needed. 7. Ambien 5 mg at bedtime p.r.n. 8. Reglan 10 mg q.6h. p.r.n. ALLERGIES: NO KNOWN DRUG ALLERGIES. FAMILY HISTORY: Significant for lung cancer in his father. Maternal grandfather had colon cancer. His mother is healthy. SOCIAL HISTORY: The patient notes he has worked for [employer] in [place]. He is and has two children. He lives in [place]. He used to smoke tobacco, but quit in 2014. He notes he does drink alcohol on social occasions. He does not use any illicit drugs. REVIEW OF SYSTEMS: CONSTITUTIONAL: Negative for any fevers, chills. Notes general malaise. RESPIRATORY: Negative for shortness of breath, wheezing, coughing. CARDIOVASCULAR: Negative for chest pain, palpitations or syncopal episodes. GASTROINTESTINAL: As noted in history of present illness, severe abdominal pain, history of colon cancer with metastasis to the liver. GENITOURINARY: Negative for dysuria, hematuria, polyuria. MUSCULOSKELETAL: Denies any arthralgias or joint swelling. SKIN: Negative for rashes, lesions, moles or unexplained changes. NEUROLOGIC: Negative for seizures, ataxia, vision changes, headaches, syncopal episodes. ENDOCRINE: Questionable Brandon's disease, currently on hydrocortisone. PHYSICAL EXAMINATION: VITAL SIGNS: Temperature 97.4. Pulse 94. Blood pressure 107/65. Respirations 18. Saturation 99% on room air. Admission weight 77.6 kg. GENERAL: On admission to the Medical/Surgical Floor, the patient is resting comfortably, appears to be in no acute distress at time of exam. HEENT: Tympanic membranes clear bilaterally. Mucous membranes pink, moist without any lesions. NECK: Supple, nontender with full range of motion. RESPIRATORY: Lungs clear to auscultation bilaterally without any rhonchi, wheezes or rales. CARDIOVASCULAR: Regular rate and rhythm without any appreciable murmurs, gallops, or rubs. ABDOMEN: Soft with tenderness to the right side of the abdomen, but no distension, no notable hepatomegaly. BACK: No CVA or vertebral tenderness. EXTREMITIES: There is no pedal edema. NEUROLOGIC: The patient is alert and oriented times three. SKIN: [place], warm and dry. LABORATORY: White count 6,600, hemoglobin 13.5, hematocrit 39.3, platelet count 520,000. Differential is without a left shift. Coagulation studies show normal PT, PTT. Chemistries show sodium 133, potassium 2.7, carbon dioxide 25, anion gap normal at 11, creatinine 0.77, uric acid 5.1, magnesium 1.9, total bilirubin within normal limits. AST elevated at 55, ALT 86, alkaline phosphatase 158. Troponin less than 0.02. TSH greater than 49.6. Urinalysis showed small bilirubin, otherwise within normal limits. RADIOLOGY: Chest x-ray performed in the Emergency Room single view chest, showed no acute cardiopulmonary abnormalities. CT of the abdomen pending report. ASSESSMENT: 1. Acute abdominal pain asymptomatic to carcinomatosis with a partial versus early small bowel obstruction. 2. History of colon cancer with hepatic metastasis and omental metastasis. 3. Moderate dehydration secondary to #1. 4. Electrolyte imbalance with hyponatremia and hypokalemia, secondary to #1. 5. Elevated transaminases, secondary to #1. 6. 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 7. Probable hypothyroidism with T4 pending at time of admission. 8. Vitamin D deficiency. 9. Testosterone deficiency. 10. Hypertriglyceridemia. PLAN: Mr. Carpenter is going to be admitted for small bowel obstruction versus partial for conservative medical treatment and surgical consultation. He will be provided pain control, antiemetics as needed. He will be NPO except for necessary medications. We will start him on some IV fluids with D5 normal saline with 20 of potassium running at 125 an hour. He will be on DVT prophylaxis per protocol. We are awaiting surgical consultation with Dr. Vasques in the morning. We will anticipate length of stay to be at least 2 to 3 days. Until he can transition to outpatient management, we will continue to monitor and treat as needed. #[id number] [facility]
[2019-04-01] MEDS ORDERED: ONDANSETRON INJ 4 MG/2 ML VIAL IV PRN (22:16)
[2019-04-01] MEDS ORDERED: SODIUM CHLORIDE 0.9% (FLUSH) 10 ML SYG IV PRN (22:16)
[2019-04-01] MEDS ORDERED: MORPHINE SULFATE INJ 10 MG/ML VIAL IV PRN (22:16)
[2019-04-01] MEDS ORDERED: IV SET AND CAP CHANGE INJ INJ SCH (22:30)
[2019-04-01] MEDS: KCL 20MEQ/D5NS 1,000 ML IVS PRN (23:10)
[2019-04-01] MEDS ORDERED: METOCLOPRAMIDE HCL 5 MG TAB PO PRN (23:55)
[2019-04-02] MEDS ORDERED: HYDROCORTISONE 20 MG TAB ONE (00:06)
[2019-04-02] MEDS: HYDROCORTISONE 10 MG PO SCH ×2 (00:10→11:11)
--- NOTE | 2019-04-02 07:17 | RAD ---
ABDOMEN, XR 04/02/2019 CLINICAL HISTORY: Colon and omental cancer with liver metastatic disease. Evaluate for small bowel obstruction. COMPARISON: Abdomen 07/01/2018. TECHNIQUE: Supine and upright AP images of the abdomen. of the abdomen. FINDINGS: Several fluid levels within the small bowel noted. No transition point seen. No free air. There is retained contrast within the colon. Unremarkable bones. Clear lung bases. Heart is normal in size. IMPRESSION: 1. Small bowel ileus. Electronically signed by: Irma Heredia DO 04/02/2019 7:14 AM CDT
[2019-04-02] MEDS: KCL 20MEQ/D5NS 1,000 ML IVS PRN ×2 (08:08→16:42)
[2019-04-02] MEDS: POTASSIUM CHLORIDE 10 MEQ TAB PO SCH (10:09)
[2019-04-02] MEDS: ENOXAPARIN SODIUM 40 MG/0.4 ML SYG SUBCU SCH (10:10)
[2019-04-02] MEDS: HYDROCORTISONE 20 MG TAB PO SCH ×2 (10:11→20:46)
[2019-04-02] MEDS ORDERED: ACETAMINOPHEN 325 MG TAB PO PRN (13:59)
--- NOTE | 2019-04-02 21:08 | PN ---
DATE: 04/02/19 SUPERVISING PHYSICIAN: Asa Dominguez M.D. SUBJECTIVE: The patient is sitting up in bed. His daughter is at the bedside. He has no complaints of nausea, vomiting, diarrhea or chest pain. He said his abdomen is much less tender. He does feel like he is improving. OBJECTIVE: Temperature 98.4, heart rate 62, blood pressure 110/75, respiratory rate 14, O2 sat 99%. RESPIRATORY: Essentially clear to auscultation bilaterally. CARDIAC: Regular rate and rhythm. GASTROINTESTINAL: Abdomen is soft. It is nondistended. It is tender to the right upper quadrant, but there is no rebound tenderness or guarding. NEUROLOGIC: He is awake, alert and oriented times three. LABORATORY: Sodium 134, potassium 3.6, chloride 96, carbon dioxide 30, glucose 146, serum osmolality 269.6. AST 35, ALT 66. Cortisol was greater than 31. Abdominal x-ray shows small bowel ileus. All other labs and films have been reviewed via the EMR. ASSESSMENT: 1. Acute abdominal pain asymptomatic to carcinomatosis with a partial versus early small bowel obstruction. 2. History of colon cancer with hepatic metastasis and omental metastasis. 3. Moderate dehydration secondary to #1. 4. Electrolyte imbalance with hyponatremia and hypokalemia, secondary to #1. 5. Elevated transaminases, secondary to #1. 6. Questionable Borden's disease on hydrocortisone therapy. 7. Probable hypothyroidism with T4 pending at time of admission. 8. Vitamin D deficiency. 9. Testosterone deficiency. 10. Hypertriglyceridemia. PLAN: We will continue present supportive care. Dr. Chavarria, spine specialist, ordered the cortisol in [place] and I called him the results of that lab. He said at this time he would do nothing but continue on his hydrocortisone medications until he takes food without any problems. Dr. Vasques saw the patient today and advanced his diet to clear liquids. Per Dr. Fabián Chavarria' recommendation will discontinue the hydrocortisone in a couple of days. At this point I will defer to Dr. Vasques for further treatment. He has ordered some lab and abdominal x-ray for the in the morning. We will continue to monitor him closely and follow as needed. #[id number] [facility]
[2019-04-03] MEDS: KCL 20MEQ/D5NS 1,000 ML IVS PRN ×2 (00:52→09:14)
--- NOTE | 2019-04-03 07:49 | RAD ---
ABDOMEN, 2 view XR 04/03/2019 CLINICAL HISTORY: Follow-up partial small bowel obstruction. COMPARISON: Abdomen 04/02/2019. TECHNIQUE: Supine and upright AP view of the abdomen. , FINDINGS: There is a paucity of central small bowel air. The bowel air has relatively decreased. There is retained contrast within the region of the descending colon and rectum. No abnormal bowel dilatation. No free air. A few fluid levels are seen in the upper and right abdomen. IMPRESSION: 1. Improving small bowel ileus versus incomplete obstruction. Electronically signed by: Irma Heredia DO 04/03/2019 7:47 AM CDT
[2019-04-03] MEDS: POTASSIUM CHLORIDE 10 MEQ TAB PO SCH (08:42)
[2019-04-03] MEDS: HYDROCORTISONE 20 MG TAB PO SCH (08:42)
[2019-04-03] MEDS: ENOXAPARIN SODIUM 40 MG/0.4 ML SYG SUBCU SCH (08:42)
[2019-04-03] MEDS ORDERED: MAGNESIUM SULFATE PREMIX 2GM 2 GM in PREMIX BAG 1 BAG IVPB ONE (08:44)
[2019-04-03] MEDS ORDERED: MAGNESIUM SULFATE PREMIX 2GM 50 ML IVPB ONE (09:10)
[2019-04-03] MEDS ORDERED: MAGNESIUM HYDROXIDE 30 ML UD PO ONE (10:57)
[2019-04-03 13:50] VITALS: TEMP 98.7
[2019-04-03 14:48] VITALS: BP 97/64; O2SAT 99
--- NOTE | 2019-04-06 15:40 | DS ---
SUPERVISING PHYSICIAN: Greg Witt MD DISCHARGE DIAGNOSIS: 1. Acute abdominal pain asymptomatic to carcinomatosis with a partial versus early small bowel obstruction. 2. History of colon cancer with hepatic metastasis and omental metastasis. 3. Moderate dehydration secondary to #1. 4. Electrolyte imbalance with hyponatremia and hypokalemia, secondary to #1. 5. Elevated transaminases, secondary to #1. 6. Questionable [place]'s disease on hydrocortisone therapy. 7. Hypothyroidism with an elevated TSH and low T4. 8. Vitamin D deficiency. 9. Testosterone deficiency. 10. Hypertriglyceridemia. HISTORY OF PRESENT ILLNESS: This is a 58-year-old male patient who has a history of metastatic colon cancer to the liver. He came to the Emergency Room on the date of admission with sudden onset of right sided abdominal pain about 2 to 3 hours before his arrival. He had just been to [place] at [facility] and had a checkup with his oncologist. His chemotherapy had been put hold since he had been having a significant amount of nausea and vomiting on and off. He frequently has outpatient admissions for IV fluids due to dehydration. He was initially diagnosed with colon cancer with metastasis to the liver in 2014 and was followed by his oncologist, Dr. Chavarria, in [place] and then referred to [facility] in April of 2018. He had had a CT of the abdomen with contrast that showed liver metastasis, splenic metastasis and peritoneal carcinomatosis and small bowel loops compatible with partial small bowel obstruction. There was initially a question of [place] disease and has been taking hydrocortisone. In the Emergency Room, laboratory studies showed he had a white count of 6,600 without a left shift on differential. His hemoglobin and hematocrit were within normal limits at 13.5 and 39.3 respectively. Coagulation studies were unremarkable. Chemistries showed he was mildly hyponatremic with sodium 133, potassium 2.7, BUN 11, creatinine 0.77. Liver functions showed elevated amylase, AST, ALT and alkaline phosphatase. Troponin less than 0.02. TSH was greater than 49.6. He was given Dilaudid in the Emergency Room for pain control. He was started on a DRAW FURNACE TENDER pump at that point. Initially, his pain was very difficult to control. He was also given 100 mg of hydrocortisone and Compazine for nausea. His vital signs showing he was afebrile with temperature 97.4, pulse 94, blood pressure 107/65, respirations 18, O2 saturation 99% on room air. He was admitted to the hospital in stable condition. HOSPITAL COURSE: He was admitted for small bowel obstruction versus partial and conservative measures were initiated as well as Dr. Vasques, general surgeon, was consulted. He was given pain control on antiemetics. He was NPO initially except for his medications. He had some IV fluids and was put on DVT prophylaxis per protocol. Dr. Vasques saw the patient in consultation he felt it was best to treat him conservatively and give time for the small bowel obstruction to resolve. It was recommended I call Dr. Chavarria. Cortisol was drawn per Dr. Chavarria. We received the result, which was 33. It was recommended I call Dr. Chavarria for further recommendations on treatment. I spoke with Dr. Chavarria and he recommended that his hydrocortisone be discontinued once the patient started eating without problems, but to continue to that point. A T4 was also drawn on the patient. PLAN: DISCHARGE MEDICATIONS: #[id number] [facility]
== END 2019-04-03 14:55 | disposition home or self-care (01) | DRG 375 ==
LOC: ER 18:07 → MS 21:24 → OBSVTOIN 21:24
PROVIDERS: ADMIT Nurse Practitioner Family; ATTEND Nurse Practitioner Family
DX: C78.6 Secondary malignant neoplasm of retroperitoneum and peritoneum (principal); C78.7 Secondary malignant neoplasm of liver and intrahepatic bile duct; E87.1 Hypo-osmolality and hyponatremia; E27.1 Primary adrenocortical insufficiency; E86.0 Dehydration; E87.6 Hypokalemia; C78.89 Secondary malignant neoplasm of other digestive organs; E78.1 Pure hyperglyceridemia; E55.9 Vitamin D deficiency, unspecified; E29.1 Testicular hypofunction; E03.9 Hypothyroidism, unspecified; Z90.49 Acquired absence of other specified parts of digestive tract; Z85.038 Personal history of other malignant neoplasm of large intestine; Z79.52 Long term (current) use of systemic steroids; Z79.891 Long term (current) use of opiate analgesic; Z79.899 Other long term (current) drug therapy; Z87.891 Personal history of nicotine dependence

== ENCOUNTER → 2019-04-06 | Outpatient (CLI) | payer OTHER | LOC: GMAM 10:35 | PROVIDERS: ATTEND Family Medicine | DX: E87.1 Hypo-osmolality and hyponatremia (principal) ==

== ENCOUNTER → 2019-04-19 | Outpatient (CLI) | payer OTHER ==
--- NOTE | 2019-04-20 16:09 | MRI ---
EXAM DESCRIPTION: Lumbar Spine w/o Contrast : Magnetic Resonance Imaging. CLINICAL HISTORY: Weakness in limb COMPARISON: MRI scan lumbar spine without gadolinium IV contrast 05/18/2008. TECHNIQUE: Multiplanar, multiple standard sequences, non contrast MRI, lumbar spine. FINDINGS: L5-S1: Normal signal in the disc and disc space preserved. No significant bulging. Hypertrophic facet arthrosis on the left with thickening of the flavum ligament and moderate narrowing of the left foramen. Also moderate narrowing of the right foramen. Canal is patent. Stable since the prior study. L4-L5: Disc space preserved with mild disc desiccation. No significant disc bulge. Bilateral mild hypertrophic facet arthrosis and ligament thickening. Canal is patent. Mild to moderate left foraminal narrowing and moderate to severe right foraminal narrowing. No change from the prior study Disc bulge into the bilateral foramina with hyperintense T2 weighted annular fissures. Not seen on the prior study. L3-L4: Normal signal in the disc with disc space preserved. Minimal bulge into the bilateral foramina with mild to moderate narrowing. Mild canal narrowing. Bilateral ligament thickening. Stable from the prior study. L2-L3: Normal signal in the disc with no disc desiccation. Posterior facet hypertrophic arthrosis and thickening of the ligaments on the right. Canal and right foramen patent with minimal narrowing on the left. No change from the prior study. L1-L2: Normal signal in the disc and disc space preserved. No posterior bulging. Posterior elements unremarkable. Canal and foramina are patent. No change since the prior study. Anterior endplate reactive changes are new since the prior study.. T12-L1: Conus terminates just below the disc space. Minimal concavity in the endplates. Normal signal in the disc with no bulging. Canal and foramina are patent. Stable since the prior study. Circumscribed hyperintense T2 and inversion recovery signal in the L1 vertebral body and the L2 vertebral body. Stable since the prior study and consistent with hemangiomas. No scoliosis. Paravertebral soft tissues are negative.. Normal marrow signal in the remaining vertebral bodies and the posterior elements. Vertebral bodies are not compressed at any level. IMPRESSION: 1. Moderate to severe right foraminal narrowing at L4-5 due to facet arthrosis and bulging disc. Evaluate for right L4 radiculopathy. Bilateral disc bulge with annular fissures, new since the prior study. 2. Multiple levels of posterior flavum ligament thickening narrowing the canal. No disc herniation at any level and no canal stenosis. 3. Anterior endplate reactive changes at L1-L2 are new since the prior study. No canal or foraminal stenosis at this level. Electronically signed by: Mohit Cheung MD 04/20/2019 4:07 PM CDT
== END ==
LOC: MRI 13:00
PROVIDERS: ATTEND Family Medicine
DX: C18.9 Malignant neoplasm of colon, unspecified (principal); M51.86 Other intervertebral disc disorders, lumbar region

== ENCOUNTER → 2019-04-20 | Outpatient (CLI) | payer OTHER | LOC: GMAM 10:48 | PROVIDERS: ATTEND Family Medicine | DX: C18.9 Malignant neoplasm of colon, unspecified (principal) ==

== ENCOUNTER → 2019-05-04 | Outpatient (CLI) | payer OTHER | LOC: GMAM 11:38 | PROVIDERS: ATTEND Family Medicine | DX: C18.9 Malignant neoplasm of colon, unspecified (principal) ==

== ENCOUNTER → 2019-05-19 | Outpatient (CLI) | payer OTHER | LOC: GMAM 10:58 | PROVIDERS: ATTEND Family Medicine | DX: E87.6 Hypokalemia (principal); E87.1 Hypo-osmolality and hyponatremia ==

== ENCOUNTER → 2019-11-19 | Outpatient (CLI) | payer OTHER | LOC: GMAM 13:05 | PROVIDERS: ATTEND Family Medicine | DX: D49.0 Neoplasm of unspecified behavior of digestive system (principal) ==